=== PATIENT | male | born 1950 | race Caucasian/White ===

== ENCOUNTER 2017-07-17 15:01 | Inpatient (IN) | payer MEDICARE, BC ==
--- NOTE | 2017-07-17 15:46 | RAD ---
AP CHEST: Indication: Acute distress with chest pain and tachycardia. FINDINGS: Lungs are clear. Cardiomediastinal silhouette is within normal limits. No acute osseous abnormality i s evident. IMPRESSION: No acute cardiopulmonary abnormality. POS: [facility]
[2017-07-17 15:52] LABS: #Eosinphils 0.2 thou/uL (0.0-0.7); #Lymphocytes 2.3 thou/uL (1.20-3.40); #Monocytes 0.7 thou/uL (0.11-0.59); #Neutrophils 6.2 thou/uL (1.40-6.50); %Basophils 0.2 % (0.0-1.0); %Eosinophils 1.7 % (0.0-10.0); %Lymphocytes 24.8 % (21.0-51.0); %Monocytes 7.9 % (0.0-10.0); %Neutrophils 65.5 % (42.0-75.0); Hemoglobin 15.8 g/dL (14.0-18.0); Mean Corpuscular HGB CONC 33.9 g/dL (32.0-36.0); Mean Corpuscular Hemoglobin 30.7 pg (27.0-31.0); Mean Corpuscular Volume 90.5 fl (80.0-94.0); Mean Platelet Volume 7.7 fL (7.4-10.4); Platelet Count 255 thou/uL (130-400); RBC Distribution Width 12.7 % (11.5-14.5); Red Blood Cell (RBC) Count 5.16 mill/uL (4.70-6.10); White Blood Cell (WBC) Count 9.4 thou/uL (4.8-10.8)
[2017-07-17 15:57] LABS: INR-International Normal Ratio 1.3; Prothrombin Time 16.1 SEC (12.0-14.7)
[2017-07-17] MEDS ORDERED: Labetalol HCl 100 MG/20 ML VIAL ONE (16:03)
[2017-07-17 16:13] LABS: Anion Gap 13 mmol/L (10-20); BUN (Urea Nitrogen) 27 mg/dL (8.4-25.7); Calc. Creatinine Clearance 0 mL/min (70-130); Calcium 9.3 mg/dL (7.8-10.44); Carbon Dioxide 25 mmol/L (23-31); Chloride 108 mmol/L (98-107); Estimated GFR-MDRD 39; Glucose 105 mg/dL (80-115); Magnesium 2.3 mg/dL (1.6-2.6); Potassium 4.5 mmol/L (3.5-5.1); Sodium 141 mmol/L (136-145)
[2017-07-17 16:15] LABS: CKMB 0.9 ng/mL (0-6.6); Troponin I 0.011 ng/mL (< 0.028)
[2017-07-17] MEDS ORDERED: Labetalol HCl 200 MG, Admixture Fee 1 EACH in Sodium Chloride 0.9% 250 ML 160 ML IVPB SCH (16:30)
[2017-07-17] MEDS ORDERED: Ondansetron ODT 4 MG TAB SL PRN (18:38)
[2017-07-17] MEDS ORDERED: Ondansetron HCl/PF 4 MG/2 ML Vial IVP PRN (18:38)
[2017-07-17] MEDS ORDERED: Sodium Chloride 0.9% 1,000 ML IV SCH (18:38)
[2017-07-17] MEDS ORDERED: Acetaminophen 325 MG TAB PO PRN ×2 (18:38→19:12)
[2017-07-17] MEDS ORDERED: Zolpidem Tartrate 5 MG TAB PO PRN (19:12)
[2017-07-17] MEDS ORDERED: Ondansetron ODT 4 MG TAB PO PRN (19:12)
[2017-07-17] MEDS ORDERED: HYDROcodone/Acetaminophen 5/325 mg Tablet PO PRN (19:12)
[2017-07-17] MEDS ORDERED: Labetalol HCl 100 MG/20 ML VIAL SLOW IVP PRN (19:12)
[2017-07-17] MEDS ORDERED: Famotidine 20 MG TAB PO SCH (21:00)
[2017-07-17 22:32] VITALS: BMI 26.0
--- NOTE | 2017-07-17 23:28 | HP ---
DATE OF ADMISSION: 07/17/2017 TIME OF SERVICE: 1700 PRIMARY CARE PHYSICIAN: Dr. Issa Delgadillo. CHIEF COMPLAINT: Palpitation. HISTORY OF PRESENT ILLNESS: Mr. Carey is a very pleasant 67-year-old man who lives in [place], current ly lives in [facility], who was down visiting his family and babysitting his grandkids well, hi s children go on vacation. The patient has a history over the last 2-3 months of paroxysmal atrial fibrillation/atrial flutter a nd is being followed by the rubber cutter and shape carver. He is currently on propafenone and metoprolol, initially h e was on 100 mg b.i.d., but became symptomatically bradycardic and was cut down to 50 mg b.i.d. There have been discussions about EP consultation in [facility] for ablat ion. He started having palpitations about 48-50 hours prior to presentation. His heart rate he noticed wi thin 130s-140s. Normally, it comes and goes, but has been fairly persistent. He did increase his me toprolol from 50 b.i.d. to 100 b.i.d. without much effect and after about 50 hours, he was having mecca e fatigue and he decided to come to the emergency department for evaluation. He did contact his card iologist at home first and they recommend he did come in. He did have a stress test on 07/08/2017 prior to travel to [place]. The stress test was normal, was an exercise echocardiogram. He has no other current complaints. He denies any chest pain. No nausea or vomiting. No diaphoresi s or cold sweats. No other complaints. PAST MEDICAL HISTORY: 1. Paroxysmal atrial fibrillation/atrial flutter. 2. Hypertension. PAST SURGICAL HISTORY: Includes, 1. Ureteral diversion in 12/2014. 2. Right inguinal hernia repair, 03/07/2017. 3. C5-C6 fusion in 10/2014. 4. Appendectomy in 1976. 5. Exercise echo as above. HOME MEDICATIONS: 1. Metoprolol 50 mg p.o. b.i.d. 2. Xarelto 20 mg p.o. at bedtime. 3. Propafenone 150 mg p.o. b.i.d. 4. Amlodipine/benazepril 5/40 daily. 5. [place] 3 daily. 6. B12 5000 mcg daily. ALLERGIES: 1. LATEX causes skin rash. 2. SULFA. He had hives some 50 years ago is now rechallenge. FAMILY HISTORY: Negative for clotting or bleeding disorder, no immune dysfunction, no blood tumors. No premature coronary artery disease. SOCIAL HISTORY: Negative for habits x3. He is and monogamous. His , Diane is his medic al decision maker and the surrogate. Her number is [phone]. We did discuss the code status. Elaina vásquez does wish to be full code. REVIEW OF SYSTEMS: A 10-point review of systems was performed and was negative for all systems excep t as stated per HPI. PHYSICAL EXAMINATION: VITAL SIGNS: Temperature 97.9, pulse 124, blood pressure 125/88, respiratory rate 17, satting 95% on room air. GENERAL: He is awake. He is alert. He is oriented x3. He is a tall, thin white male, appears to b e in zero distress. HEENT: Normocephalic, atraumatic. His pupils are equal, round and reactive to light bilaterally, mu cous membranes are moist. He had no visible lesion, no thrush. NECK: Supple, with no lymphadenopathy, no JVD, no thyromegaly. He has normal carotid upstroke. I d o not appreciate bruits. LUNGS: Clear. He has good air movement. Symmetrical chest excursion. No wheezes, no rales, no rho nchi. No prolonged expiratory phase. CARDIOVASCULAR: He has a regular, but tachycardic. I do not appreciate murmurs. He has no audible rubs. ABDOMEN: Soft, it is nontender, nondistended. He has good bowel sounds in all four quadrants. Ther e is no rebound, rigidity or guarding. There is no hepatosplenomegaly. EXTREMITIES: No cyanosis, no clubbing, no edema. He has got 2+ dorsalis pedis in posterior tibial a nd radial arteries bilaterally. SKIN: Warm, moist and well perfused. He has no rashes, no lesions. NEUROLOGIC: His cranial nerves II through XII grossly intact. He has 5/5 strength, normal speech, a nd no focal neurologic deficits. MUSCULOSKELETAL: Normal to inspection. Large joints are uninflamed. There is no palpable effusions . LABORATORY DATA AND X-RAY FINDINGS: Sodium 141, potassium 4.5, chloride 108, bicarbonate 25, BUN 27, creatinine 1.76, glucose 165, calcium 9.3. Liver function is normal. CBC showed white count 9.4, hemoglobin 15.8, hematocrit of 46.7, platelet count is 255,000. White co unt with normal differential. CK-MB normal at 0.9. Troponin I is normal at 0.011. Chest x-ray showed no acute cardiopulmonary disease. EKG showed atrial flutter with 2:1 block at a r ate of 121. ASSESSMENT AND PLAN: 1. Paroxysmal atrial flutter/history of paroxysmal atrial fibrillation. The patient is already anti coagulated with Xarelto. He was given labetalol in the emergency department without much effect. Th ey are going to start a labetalol drip and I asked them to hold off. We will give him 20 mg of IV Ca rdizem and start him on 60 mg of Cardizem p.o. q.[address] him in the intermediate care unit in case he does require intravenous drip for rate control. We will continue his propafenone and metoprolol. We will hold his amlodipine and benazepril. 2. Hypertension, essential. The patient is on metoprolol, amlodipine and benazepril. He does have a creatinine of 1.76, but he is not aware of any chronic kidney issues. We will hold benazepril at p resent. We will use the Cardizem for blood pressure and rate control and continue his metoprolol and I have added IV labetalol as needed for elevated pressure. 3. Possible chronic kidney disease stage 2. Creatinine here is 1.76 with a BUN of 27. He is on steve azepril 40 mg a day. Certainly could have an BATOOL inhibitor induced creatinine elevation. We will ho ld off on his benazepril at present and he does not have any history of heart failure and we will fol low his creatinine very closely. The patient is already on Xarelto for stroke prophylaxis. We will continue as 20 mg p.o. at bedtime and I have added Pepcid b.i.d. p.o. for GI prophylaxis. I have consulted Dr. Lugo/Cardiology to see the patient regarding rate and rhythm control. He is very interested to know that we did have an Electrophysiology present, Dr. Herman, but I am not sure i f Dr. Herman is in town. We will ask Dr. Lugo to see the patient and make referral to EP if he fee ls appropriate.
--- NOTE | 2017-07-17 23:38 | PDOC.EVN ---
Event Note - Event Note Event Note: paged re: persistent tachycardia HR 130s with new hypotension rev h&p intiate cardizem gtt initial rate of 10mg/hr with anticipated titration and continued close monitoring, particularly of SBP d/w bedside nsg
[2017-07-17] MEDS ORDERED: Diltiazem 125 MG in Sodium Chloride 0.9% 100 ML IVPB SCH (23:45)
[2017-07-18 04:31] LABS: Anion Gap 10 mmol/L (10-20); BUN (Urea Nitrogen) 23 mg/dL (8.4-25.7); Calc. Creatinine Clearance 64 mL/min (70-130); Carbon Dioxide 26 mmol/L (23-31); Chloride 108 mmol/L (98-107); Estimated GFR-MDRD 47; Glucose 87 mg/dL (80-115); Magnesium 2.1 mg/dL (1.6-2.6); Potassium 4.1 mmol/L (3.5-5.1); Sodium 140 mmol/L (136-145)
[2017-07-18] MEDS ORDERED: FLU VACC TS2017-18 (>65YR) 0.5 ML SYRINGE IM ONE (07:00)
[2017-07-18] MEDS ORDERED: Prevnar 13-Val Conj/PF 0.5 ML SYRINGE IM ONE (07:00)
[2017-07-18 09:13] LABS: #Basophils 0.1 thou/uL (0.0-0.2); #Eosinphils 0.1 thou/uL (0.0-0.7); #Lymphocytes 1.8 thou/uL (1.20-3.40); #Monocytes 0.7 thou/uL (0.11-0.59); #Neutrophils 5.6 thou/uL (1.40-6.50); %Basophils 0.7 % (0.0-1.0); %Eosinophils 1.7 % (0.0-10.0); %Lymphocytes 21.8 % (21.0-51.0); %Monocytes 8.1 % (0.0-10.0); %Neutrophils 67.8 % (42.0-75.0); Hemoglobin 15.6 g/dL (14.0-18.0); Mean Corpuscular Hemoglobin 30.9 pg (27.0-31.0); Mean Corpuscular Volume 90.9 fl (80.0-94.0); Mean Platelet Volume 7.3 fL (7.4-10.4); Platelet Count 216 thou/uL (130-400); RBC Distribution Width 12.8 % (11.5-14.5); Red Blood Cell (RBC) Count 5.03 mill/uL (4.70-6.10); White Blood Cell (WBC) Count 8.3 thou/uL (4.8-10.8)
[2017-07-18 09:33] LABS: Anion Gap 10 mmol/L (10-20); BUN (Urea Nitrogen) 22 mg/dL (8.4-25.7); Calc. Creatinine Clearance 56 mL/min (70-130); Calcium 9.1 mg/dL (7.8-10.44); Carbon Dioxide 29 mmol/L (23-31); Chloride 107 mmol/L (98-107); Estimated GFR-MDRD 40; Glucose 93 mg/dL (80-115); Magnesium 2.2 mg/dL (1.6-2.6); Potassium 4.1 mmol/L (3.5-5.1); Sodium 142 mmol/L (136-145)
[2017-07-18] MEDS ORDERED: Diprivan 20 ML ONE (10:22)
[2017-07-18] MEDS ORDERED: Lidocaine 1% PF 5 ML VIAL ONE ×2 (10:22→14:25)
--- NOTE | 2017-07-18 11:34 | CON ---
DATE OF CONSULTATION: 07/18/2017 HISTORY OF PRESENT ILLNESS: Patient is a very pleasant 67-year-old gentleman who presents for evaluation of palpitations. Patient has a previous history of atrial flutter. The patient has been seen by an Electrophysiology in [place]. He has been treated with Toprol and Rythmol. The patient presented once again with increased palpitations. The patient denied having any chest discomfort. The patient states he previously underwent a stress test which revealed no evidence of ischemia. PAST MEDICAL HISTORY: 1. Hypertension. 2. Atrial flutter/fibrillation. PAST SURGICAL HISTORY: 1. Hernia surgery. 2. Ureteral surgery. SOCIAL HISTORY: Nonsmoker. MEDICATIONS ON ADMISSION: Lotrel 1 tablet daily, metoprolol 50 b.i.d., Xarelto 20 daily, propafenone 150 p.o. b.i.d. REVIEW OF SYSTEMS: A 10-point system unremarkable. No history of red blood per rectum. ALLERGIES: SULFA DRUGS. FAMILY HISTORY: No strong family history of heart disease. PHYSICAL EXAMINATION: GENERAL: Well-developed gentleman in no acute distress. Blood pressure 101/78. NECK: No jugular venous distention. LUNGS: Clear to auscultation. HEART: Regular rate and rhythm, normal S1, S2, no murmurs. ABDOMEN: Nondistended. EXTREMITIES: No edema. SKIN: Warm and dry. NEUROLOGIC: Nonfocal. VASCULAR: Radial pulses are 2+. LABORATORY DATA: Sodium 140, potassium 4.1, chloride 108, bicarbonate 26, BUN 23, creatinine is 1.5. White blood cell count 9.4, hemoglobin 15.8, hematocrit 46.7, platelets 255. INR 1.3. EKG revealed atrial flutter with a nonspecific ST abnormality. IMPRESSION: 1. Recurrent atrial flutter. 2. History of atrial fibrillation/flutter. 3. Hypertension. This gentleman presents with recurrent atrial fibrillation/flutter. We will increase the dose of propafenone. We will proceed with electrical cardioversion , the risks involved have been explained to the patient and he wishes to proceed. PLAN: 1. Increase Rythmol 150 mg po t.i.d. 2. Proceed with electrical cardioversion. [facility]
[2017-07-18] MEDS: Propafenone HCl 150 MG TAB PO SCH ×2 (11:49→18:11)
--- NOTE | 2017-07-18 14:11 | OP ---
ELECTRICAL CARDIOVERSION NOTE INDICATION FOR THE PROCEDURE: This is a 67-year-old gentleman with typical atrial flutter. DESCRIPTION OF PROCEDURE: The patient was taken to the PACU. The patient was sedated by anesthesiol dwain. The patient was shocked with 50 joules of synchronized electricity. The patient converted to n ormal sinus rhythm. IMPRESSION: Successful electrical cardioversion.
[2017-07-18] MEDS ORDERED: PHENYLEPHRINE-NS 100 MCG/ML 10 ML SYRINGE ONE (14:25)
[2017-07-18] MEDS ORDERED: Propofol 200 MG/20 ML VIAL ONE (14:25)
[2017-07-18 15:05] VITALS: BP 101/64; TEMP 98.7
--- NOTE | 2017-07-18 15:35 | PDOC.PN ---
- Subjective Encounter Start Date: 07/18/17 Encounter Start Time: 10:20 pt events removed, rate controlled, still in aflutter. Seen by [facility], to go to laborer heading for DC cardioversion today. Propafenone increased to 150mg po TID. no F/C,no n/V/D/C, no CP or sOb. 10 point ROs performed and neg for all systems except as per HPI - Objective Resuscitation Status: Resuscitation Status FULL:Full Resuscitation MAR Reviewed: Yes Vital Signs & Weight: Vital Signs (12 hours) Temp Pulse Resp BP Pulse Ox 07/18/17 15:05 98.7 F 69 18 101/64 98 07/18/17 11:27 98.8 F 74 20 120/79 95 07/18/17 08:00 98.0 F 142 H 18 101/78 100 07/18/17 04:09 97.3 F L 71 20 110/70 98 Weight Weight 203 lb I&O: 07/17/17 07/18/17 07/19/17 06:59 06:59 06:59 Intake Total 422.5 Balance 422.5 Result Diagrams: 07/18/17 09:06 07/18/17 09:06 Radiology Reviewed by me: Yes EKG Reviewed by me: Yes Phys Exam - Physical Examination Constitutional: NAD HEENT: PERRLA, moist MMs, sclera anicteric, oral pharynx no lesions Neck: no nodes, no JVD, supple, full ROM Respiratory: no wheezing, no rales, no rhonchi, clear to auscultation bilateral Cardiovascular: RRR, no significant murmur, no rub Gastrointestinal: soft, non-tender, no distention, positive bowel sounds Musculoskeletal: no edema, pulses present Neurological: non-focal, normal sensation, moves all 4 limbs Lymphatic: no nodes Psychiatric: normal affect, A&O x 3 Skin: no rash, normal turgor, cap refill <2 seconds Dx/Plan (1) Atrial flutter Code(s): I48.92 - UNSPECIFIED ATRIAL FLUTTER Status: Acute Qualifiers: Atrial flutter type: unspecified Qualified Code(s): I48.92 - Unspecified atrial flutter Comment: paroxysmal, 2:1 block on arrival, 4:1 now. to cardioversion today. Home when okay with cardiology, will likely need an ablation later. icreased propafenone, on metorpolol. (2) Paroxysmal A-fib Code(s): I48.0 - PAROXYSMAL ATRIAL FIBRILLATION Status: Chronic (3) HTN (hypertension) Code(s): I10 - ESSENTIAL (PRIMARY) HYPERTENSION Status: Chronic Qualifiers: Hypertension type: essential hypertension Qualified Code(s): I10 - Essential (primary) hypertension (4) HLD (hyperlipidemia) Code(s): E78.5 - HYPERLIPIDEMIA, UNSPECIFIED Status: Acute Qualifiers: Hyperlipidemia type: unspecified Qualified Code(s): E78.5 - Hyperlipidemia , unspecified (5) CKD (chronic kidney disease) stage 2, GFR 60-89 ml/min Code(s): N18.2 - CHRONIC KIDNEY DISEASE, STAGE 2 (MILD) Status: Chronic - Plan cont current plan of care, plan discussed w/ family, out of bed/ambulate * .
[2017-07-18] MEDS ORDERED: Rivaroxaban 10 MG TAB PO SCH (18:00)
--- NOTE | 2017-07-18 20:06 | DIS ---
DATE OF ADMISSION: 07/17/2017 DATE OF DISCHARGE: 07/18/2017 PRIMARY CARE PHYSICIAN: Dr. Delgadillo in [facility]. BIAS BINDING CUTTER: Here is Dr. Cruz Lugo DISCHARGE DIAGNOSES: 1. Paroxysmal atrial flutter. 2. Paroxysmal atrial fibrillation. 3. Hypertension. 4. Chronic kidney disease stage 2. 5. Hyperlipidemia. CONSULTATION: Dr. Cruz Lugo, Cardiology. PROCEDURE: DC cardioversion, 07/18/2017. HOSPITAL COURSE: Mr. Mendoza is a 67-year-old white male with a history of last 2 months of proximal fibrillation/atrial flutter. He has been on metoprolol in varying doses adjusted due to his heart ra te. He had a stress test just prior to leaving [facility] came down here for a month until babysit while his children were traveling. He has been watching his grandchildren. He had 48 hours of palpitations and presented to the emergency department at the direction of his car diologist back home. In the ER, he was found to be in atrial flutter with a rate of 132:1 block. We are consulted for adm ission. HOSPITAL COURSE: The patient was seen and examined by me in the emergency department and he was star subhash on Cardizem, admitted to the [facility] in case he needed a drip. Overnight, he did have increased hea rt rate and was switched over to Cardizem intravenously. He became rate controlled, but still in atr ial flutter with a 4:1 block. fashion consultant selling saw him in the morning and recommended a DC card ioversion. He was taken to the laboratory manager and DC cardioversion was performed and successful. He was subsequently increased of the propafenone to 150 mg p.o. t.i.d. Post-procedure, the patient remained in sinus rhythm and was cleared for discharge by Cardiology with outpatient followup in 2 days with EKG. PHYSICAL EXAMINATION: The patient was seen and examined on the day of discharge. Discharge plan and disposition was discussed with the patient and his face to face at bedside. DISCHARGE MEDICATIONS: 1. Amlodipine/benazepril 5/40 one tablet p.o. daily. 2. Cyanocobalamin 5000 mcg daily. 3. [place] 3 one tablet daily. 4. Metoprolol tartrate 50 mg p.o. b.i.d. 5. Propafenone 50 mg p.o. t.i.d., prescription for 90 tablets with 3 refills sent to [facility]. 6. Xarelto 20 mg p.o. q.p.m. DISCHARGE CONDITION: Stable. DISPOSITION: Will be discharged to home via private vehicle with his . DISCHARGE ACTIVITY: Per cardiopulmonary limits. DISCHARGE DIET: Heart healthy recommended. FOLLOWUP 1. Primary care physician when he returns back to [facility]. 2. Dr. Cruz Lugo in 2 days with an EKG.
--- NOTE | 2017-07-18 23:06 | ECHO ---
This is a 67-year-old gentleman with atrial flutter. The patient taken to the PACU. The patient sedated by anesthesiology. Transesophageal probe was placed distally in the esophagus and stomach. Echocardiographic images were obtained. The transesophageal probe was removed. FINDINGS: 1. Normal left ventricular systolic function. 2. Normal mitral and aortic valves. 3. Mild mitral regurgitation. 4. Mild tricuspid regurgitation. 5. No thrombus noted in left atrial appendage. 6. Atherosclerotic debris in the descending aorta. IMPRESSION: No formed thrombus in the left atrial appendage. MTDD
--- NOTE | 2017-07-19 06:22 | CON ---
DATE OF CONSULTATION: 07/18/2017 ELECTROPHYSIOLOGY CONSULTATION REPORT REFERRING PHYSICIAN: Dr. Lugo. I am seeing Mr. Mendoza at our [facility] as an Electrophysiology assessment consultant. His problems are: 1. Recurrent atrial arrhythmias. A. Prior history of atrial fibrillation requiring propofol therapy. B. Presentation with typical atrial flutter to our facility requiring cardioversion. C. Chronic anticoagulation with rivaroxaban. 2. No prior history of coronary heart disease noted. 3. Hypertension. 4. History of negative stress test on 07/08/2017 with a stress echocardiogram. ALLERGIES: LATEX AND SULFA. MEDICATIONS: At home include metoprolol 50 mg twice a day, Xarelto 10 mg at bedtime, propafenone 150 mg twice a day, amlodipine/benazepril 5/40 mg daily, omega 3 fatty acid supplements, vitamin B12 supplements. SUBJECTIVE: Mr. Mendoza is here due to recurrent palpitations. This gentleman usually lives in [place], but also goes on vacation, this vacation was in [facility]. He was here visiting his family, visiting his grandkids. He has been noticing frequent palpitations in last 2-3 months. He has been evaluated by his prosthetic dentist in [place] and eventually propafenone and metoprolol was started. He had planned to have an EP consultation also in [facility] for consideration for ablation. His palpitation has been though persisting despite of the low-dose propafenone. His heart rates were up to 130-140 at that time. Although he has increased his metoprolol dose from 50 b.i.d. to 100 b.i.d., but it not really gave him much relief. Eventually, he got admitted here in our hospital, Dr. Lugo evaluated him. Decision was made to perform the cardioversion, hence he has been well anticoagulated. Eventually, the propafenone was increased as well. Currently, he is feeling better in normal rhythm. He denies chest pains, no fever, chills, or cough. No stroke-like symptoms or bleeding issues are noted. No PND, orthopnea, or lower extremity edema. REVIEW OF SYSTEMS: Rest of 12-point system otherwise unremarkable. PAST MEDICAL HISTORY: As above. He has no prior heart disease or heart attacks. His first notion of atrial fibrillation was just this May. SOCIAL HISTORY: Again, he is retired. Denies smoking, ETOH, or drug use. FAMILY HISTORY: Negative for premature coronary artery disease or clotting disorder. OBJECTIVE DATA: VITAL SIGNS: The blood pressure is 101/64, 169, respirations 18, temperature 98.7 degrees Fahrenheit. GENERAL: He is alert and oriented man in no apparent distress. NECK: Supple. Jugular veins not distended. CHEST: Coarse without crackles. CARDIAC: Heart sounds are regular to rate and rhythm. No murmur or gallop is appreciated. PMI is nonpalpable. ABDOMEN: Benign. Bowel sounds are positive. EXTREMITIES: Lower extremities without edema, clubbing, or cyanosis. Pulses are adequate. NEUROLOGIC: Patient is nonfocal. MUSCULOSKELETAL: No joint swelling or deformities. SKIN: Without rash. DATABASE: The EKG is reviewed initially atrial flutter, which appears typical isthmus dependent morphology. Subsequent EKG after cardioversion with sinus rhythm. LABORATORY DATA: White cell count is 8.3, hemoglobin 15.6, platelet count is 216. INR is 1.3. Sodium 142, potassium 4.1, BUN is 22, creatinine is 1.72. ASSESSMENT AND PLAN: Mr. Mendoza is a pleasant 67-year-old man with prior history of hypertension and negative recent stress test, who has had atrial fibrillation and flutter both as per his description on his original presentation in 05/2017. Although, he was started on metoprolol, which required up-titration and low-dose propafenone, he had been sustaining an atrial flutter for over 2 days with rapid rates requiring this admission. He was cardioverted and his propafenone as increased currently maintaining sinus rhythm. Good long discussion about the nature of his arrhythmias, we discussed the differences between atrial flutter, which is likely due to right-sided cavotricuspid isthmus dependent circuit and also the atrial fibrillation, which are more likely initiated by left atrial PAC. We discussed the potential treatment options, which could include continued increasing rhythm medications, consider pulmonary venous isolation procedure along with cavotricuspid isthmus ablation or just cavotricuspid isthmus ablation alone. I did discuss with him the pros and cons of each procedure. Complicated issues that he might need to return to [place] in August. At this point, he is ready to be discharged and he is stable post cardioversion. I gave him the option ofchoosing for any of these routes above. Tentatively, we will make arrangements for potential ablation procedure next week, but he will make the final decision. We will contact him in this regard. In meantime, continue propafenone, Xarelto, and the metoprolol. I agree with increasing propafenone to 150 mg 3 times a day dose. Thank you again for allowing me to participate in the care of this patient. GARRICK
--- NOTE | 2017-07-21 15:57 | EKG ---
Test Reason : Blood Pressure : / mmHG Vent. Rate : 121 BPM Atrial Rate : 242 BPM P-R Int : 000 ms QRS Dur : 090 ms QT Int : 304 ms P-R-T Axes : -85 065 036 degrees QTc Int : 431 ms Atrial flutter with 2:1 A-V conduction Junctional ST depression, probably normal Abnormal ECG Confirmed by KARSTEN HUBBARD, UMBERTO ([id number]), technical editor RYLEE AGRAWAL ([id number]) on 07/21/2017 3:56:23 PM Referred By: Confirmed By:UMBERTO SHELLEY MD
== END 2017-07-18 18:56 | disposition home or self-care (01) | DRG 310 ==
LOC: ERS 15:01 → IMCU/EMU 16:56 → ERS 18:22
PROVIDERS: ADMIT Internal Medicine Infectious Disease; ATTEND Internal Medicine Infectious Disease
PROC: 5A2204Z Restoration of Cardiac Rhythm, Single (ICD-10-PCS; principal; 2017-07-18)
DX: I48.0 Paroxysmal atrial fibrillation (principal); E78.5 Hyperlipidemia, unspecified; I12.9 Hypertensive chronic kidney disease with stage 1 through stage 4 chronic kidney disease, or unspecified chronic kidney disease; Z98.1 Arthrodesis status; Z88.2 Allergy status to sulfonamides; Z91.040 Latex allergy status; N18.2 Chronic kidney disease, stage 2 (mild); I48.92 Unspecified atrial flutter; Z79.01 Long term (current) use of anticoagulants
CPT/HCPCS: 36415; 71045; 80048; 82553; 83735; 84484; 85025; 85610; 92960; 93005; 93312; 96361; 96374; J2001; J2704; J7050

== ENCOUNTER 2017-08-08 08:03 | Outpatient (CLI) | payer MEDICARE, BC ==
--- NOTE | 2017-08-08 11:37 | CT ---
CT ANGIOGRAM OF HEART WITH AND WITHOUT CONTRAST: Date: 08-08-17 History: 67-year-old male with atrial fibrillation. Pulmonary venous mapping study for planning for ablation t herapy. Atrial fibrillation - I48.91. Technique: Pre and post contrast scans performed through the heart. Limited field of view. Coronal and oblique s agittal 3D MIP reconstructions. FINDINGS: Bovine common origin of the left common carotid artery with the brachiocephalic artery. There is a si ngle tiny coronary arthrosclerotic calcification at the left anterior descending coronary artery (vis ible only on post contrast images 172 and 171 of 353, series 4. Not visible on the noncontrast scan b ecause of thicker slices on that scan). Approximately 3.5 cm round hepatic cyst near the junction b etween the left and right lobes of liver. No thoracic aortic aneurysm or dissection. No evidence of t hrombus in the left atrial appendage. No cardiomegaly or pericardial effusion. No pleural effusion. N o infiltrate or mass visualized in the central portions of the lungs. No mediastinal or hilar lymphad enopathy. No atrial septal defect or ventricular septal defect. In addition to the typical four main pulmonary veins, there is an additional left middle pulmonary vein. IMPRESSION: Pulmonary vein anatomy consists of the typical four main pulmonary veins, plus a left sided middle ve in. POS: [facility]
[2017-08-08 15:30] LABS: Hemoglobin 15.1 g/dL (14.0-18.0); Mean Corpuscular HGB CONC 32.4 g/dL (32.0-36.0); Mean Corpuscular Hemoglobin 30.2 pg (27.0-31.0); Mean Corpuscular Volume 93.1 fl (80.0-94.0); Mean Platelet Volume 7.6 fL (7.4-10.4); Platelet Count 241 thou/uL (130-400); RBC Distribution Width 12.7 % (11.5-14.5); White Blood Cell (WBC) Count 7.2 thou/uL (4.8-10.8)
[2017-08-08 15:36] LABS: INR-International Normal Ratio 1.2; PTT 31.1 SEC (22.9-36.1); Prothrombin Time 14.9 SEC (12.0-14.7)
[2017-08-08 15:46] LABS: Anion Gap 15 mmol/L (10-20); BUN (Urea Nitrogen) 22 mg/dL (8.4-25.7); Calc. Creatinine Clearance 0 mL/min (70-130); Calcium 9.8 mg/dL (7.8-10.44); Carbon Dioxide 26 mmol/L (23-31); Chloride 106 mmol/L (98-107); Estimated GFR-MDRD 45; Glucose 101 mg/dL (80-115); Sodium 142 mmol/L (136-145)
== END 2017-08-08 08:04 | disposition home or self-care (01) ==
LOC: CT 08:03
PROVIDERS: ATTEND Internal Medicine Cardiovascular Disease
DX: Z01.818 Encounter for other preprocedural examination (principal); I48.91 Unspecified atrial fibrillation
CPT/HCPCS: 71275; 75574; 80048; 82565; 85027; 85610; 85730

== ENCOUNTER 2017-08-09 12:58 | Observation (INO) | payer MEDICARE, BC ==
[2017-08-09] MEDS ORDERED: PHENYLEPHRINE-NS 100 MCG/ML 10 ML SYRINGE ONE (13:49)
[2017-08-09] MEDS ORDERED: Succinylcholine Chloride 20 MG/ML 10 ml SYRINGE FS ONE (13:49)
[2017-08-09] MEDS ORDERED: PROPOFOL 200 MG/20 ML VIAL ONE (13:49)
[2017-08-09] MEDS ORDERED: Ondansetron HCl/PF 4 MG/2 ML Vial ONE (13:49)
[2017-08-09] MEDS ORDERED: Heparin 30,000 units/30 ml VIAL ONE (13:49)
[2017-08-09] MEDS ORDERED: Heparin 10,000 UNITS/1 ML VIAL ONE (16:39)
[2017-08-09] MEDS ORDERED: Isoproterenol 0.2 MG/1 ML AMP ONE (17:24)
[2017-08-09] MEDS ORDERED: Protamine Sulfate 50 MG/5 ML VIAL ONE (18:18)
[2017-08-09] MEDS ORDERED: Furosemide 40 MG/4 ML VIAL ONE (18:19)
[2017-08-09] MEDS ORDERED: Promethazine HCl 25 MG/ML VIAL IM PRN (18:34)
[2017-08-09] MEDS ORDERED: Morphine Sulfate 2 MG/ML SYRINGE SLOW IVP PRN (18:34)
[2017-08-09] MEDS ORDERED: Promethazine HCl 25 MG/ML VIAL SLOW IVP PRN (18:34)
[2017-08-09] MEDS ORDERED: Ondansetron HCl/PF 4 MG/2 ML Vial IVP PRN ×2 (18:34→21:51)
[2017-08-09] MEDS ORDERED: Nitroglycerin 0.4 MG TAB (25 Tab Bottle) SL PRN (21:51)
[2017-08-09] MEDS ORDERED: Silver Sulfadiazine 1% Cream 50 GM JAR TOP PRN (21:51)
[2017-08-09] MEDS ORDERED: Acetaminophen 325 MG TAB PO PRN (21:51)
[2017-08-09] MEDS ORDERED: Bisacodyl 5 MG TAB PO PRN (21:51)
[2017-08-09] MEDS ORDERED: Mag-Al 1200 mg/1200 mg/30 ML UDCUP PO PRN (21:51)
[2017-08-09] MEDS ORDERED: Bisacodyl 10 MG SUPP PR PRN (21:51)
[2017-08-09] MEDS ORDERED: traMADol HCl 50 MG TAB PO PRN (21:51)
[2017-08-09] MEDS ORDERED: diphenhydrAMINE 25 MG CAP PO PRN (21:51)
[2017-08-09] MEDS ORDERED: Temazepam 15 MG CAP PO PRN (21:51)
[2017-08-09 22:33] VITALS: BMI 25.0
[2017-08-09] MEDS: Propafenone HCl 150 MG TAB PO SCH (22:38)
--- NOTE | 2017-08-10 00:53 | OP ---
DATE OF PROCEDURE: 08/09/2017 ELECTROPHYSIOLOGY PROCEDURE NOTE PROCEDURE: Comprehensive EP testing with 3D mapping and ablation of atrial fibrillation. CORE FINISHER: William Mackenzie MD ASA CLASSIFICATION: 3. ANESTHESIA: Total IV anesthesia per Anesthesiology. ADDITIONAL CARDIAC MEDICATIONS: Isoproterenol 10 mcg per minute infusion. Total heparin given, 16,0 00 units. Total protamine given, 40 mg. ACUTE COMPLICATIONS: None apparent. TOTAL RADIOFREQUENCY TIME: 15 minutes 23 seconds. METHODS: After informed consent was obtained, the patient was taken to the EP lab in a fasting state . Both groins were prepped and draped using ultrasound guidance. The right and left femoral veins w ere accessed and wires were placed in the central venous system. The wires were used to place an 11 and 8-Colombian sheath in left groin, two 8-Colombian sheath in the right groin. All 8-Colombian sheaths were then replaced by long sheaths for catheter stability. A 10-Colombian echo probe was placed in left bella in, advanced into the right atrium and the right ventricle for imaging. A circular and ablation cath eter were placed in right groin and advanced up to the right atrium. A 3D map was obtained at the ri t atrium and the coronary sinus. A 20-pole catheter was placed in the left groin and advanced up t o the coronary sinus. The patient was then anticoagulated. Transseptal catheterization was performe d on 2 occasions and 3D map was obtained of the left atrium. A temperature probe was placed in the e sophagus, collocated with a sensor to monitor temperatures during RF ablation. Ablation was delivere d completely isolating all pulmonary veins and the posterior wall of left atrium. The patient then s ustained a right-sided flutter. After an observation period, catheter was withdrawn to the right atr ium and ablation was delivered terminating the flutter. Confirmed bidirectional block was seen. At the conclusion of procedure, catheters were drawn. Sheaths were pulled and hemostasis was achieved w ith collagen closure. His left chest was then prepped and an injectable monitor was placed for monit oring. RESULTS: 1. Baseline intervals: HV interval 59 milliseconds. The patient demonstrated typical atrial flutte r with a cycle length of 208 milliseconds pacing within the flutter circuit, confirmed concealed entr ainment. 2. Atrial function: The patient did not demonstrate atrial fibrillation; however, with the clinical evidence of atrial fibrillation previously, PVAI was performed including isolation of the posterior wall of left atrium. The patient was in CTI flutter, which was mapped and ablated in the right side floor of the right atrium with confirmed bidirectional block. 3. Ablation detail: A total of 15 minutes 23 seconds were delivered to isolate all 3 pulmonary vein s (the patient had a left common pulmonary vein), as well as interrupt the cavotricuspid isthmus. IMPRESSION: Successful ablation of left atrium for treatment of atrial fibrillation along with a CTI flutter line. RECOMMENDATION: Oral anticoagulation.
[2017-08-10] MEDS: Propafenone HCl 150 MG TAB PO SCH (05:25)
[2017-08-10] MEDS ORDERED: Metoprolol Tartrate 50 MG TAB PO SCH (09:00)
[2017-08-10] MEDS ORDERED: Cyanocobalamin (Vitamin B-12) 1,000 MCG TAB PO SCH (09:00)
[2017-08-10] MEDS ORDERED: Fish Oil 1,000 MG CAP PO SCH (09:00)
[2017-08-10] MEDS ORDERED: Amlodipine 5 MG TAB PO SCH (09:00)
[2017-08-10 12:24] VITALS: BP 109/62; TEMP 99.6
--- NOTE | 2017-08-10 12:59 | DIS ---
DATE OF ADMISSION: 08/09/2017 DATE OF DISCHARGE: 08/10/2017 ADMITTING DIAGNOSES: Typical atrial flutter and atrial fibrillation. PROCEDURES PERFORMED: Comprehensive EP testing with 3D mapping and ablation of atrial fibrillation a nd CTI flutter ablation. Implantation of a LINQ loop recorder TOTAL RF TIME: 50 minutes 23 seconds. IMPRESSION: Successful ablation of left atrium for treatment of atrial fibrillation as well as CTI f lutter line placed for typical atrial flutter. CONDITION: Stable. HISTORY OF PRESENT ILLNESS: Mr. Mendoza is a 67-year-old gentleman who initially presented to [facility] with atrial flutter a few weeks ago while on vacation from [place]. He was also found to fitzgerald ve atrial fibrillation. He opted for setting up an elective outpatient ablation prior to heading [employer] to his home in the [facility] region. On 08/09/2017 he underwent successful ablation for at rial fibrillation in the left atrium as well as CTI flutter line placed for his typical atrial flutte r. He has had a stable recovery. His Diggs was removed the day of the procedure and he has been voi ding normally. He has been ambulating in halls without difficulty and tolerating p.o. intake. His g roin sites are stable without hematoma, oozing or additional complication. He has been maintained in sinus rhythm overnight. He was previously on propafenone for arrhythmia suppression as well as meto prolol for rate control. He has been maintained on Xarelto for stroke prophylaxis. He is stable for discharge today. He will discontinue his Rythmol, but will continue his metoprolol succinate and his Xarelto. DISCHARGE MEDICATIONS: Lotrel 5-40 mg 1 tab daily, metoprolol XL 50 mg daily, Xarelto 20 mg daily. New prescriptions are Carafate 1 gram q.i.d. x2 weeks, Protonix 40 mg daily for 1 month, Lasix 20 mg 1 tab daily as needed for shortness of breath or fluid retention and potassium chloride 10 mEq daily as needed if taking Lasix. DISCHARGE INSTRUCTIONS: No lifting more than 15 pounds or soaking baths for 1 week. Otherwise, to r esume normal activities after 1 week without restriction. Heart healthy diet. He will follow up in 4-6 weeks.
[2017-08-10] MEDS ORDERED: Rivaroxaban 10 MG TAB PO SCH (17:00)
--- NOTE | 2017-08-22 22:53 | EKG ---
Test Reason : PREOP Blood Pressure : / mmHG Vent. Rate : 142 BPM Atrial Rate : 142 BPM P-R Int : 148 ms QRS Dur : 088 ms QT Int : 248 ms P-R-T Axes : 269 049 -20 degrees QTc Int : 381 ms atrial flutter,2:[address] abnormality, possible inferior subendocardial injury Abnormal ECG When compared with ECG of 17-JUL-2017 15:10, Ectopic atrial rhythm has replaced Atrial flutter ST more depressed in Inferior leads Confirmed by Mao ELLISON ([id number]) on 08/22/2017 10:53:18 PM Referred By: BRANDON Confirmed By:Mao ELLISON
--- NOTE | 2017-08-22 22:54 | EKG ---
Test Reason : STAT Blood Pressure : / mmHG Vent. Rate : 079 BPM Atrial Rate : 079 BPM P-R Int : 142 ms QRS Dur : 092 ms QT Int : 354 ms P-R-T Axes : 069 063 056 degrees QTc Int : 405 ms Normal sinus rhythm Normal ECG When compared with ECG of 09-AUG-2017 13:51, (Unconfirmed) Sinus rhythm has replaced Ectopic atrial rhythm Vent. rate has decreased BY [address] no longer depressed in Inferior leads ST no longer depressed in Anterior leads T wave inversion no longer evident in Inferior leads Confirmed by Mao ELLISON ([id number]) on 08/22/2017 10:54:23 PM Referred By: BRANDON Confirmed By:Mao ELLISON
== END 2017-08-10 12:22 | disposition home or self-care (01) ==
LOC: CCL 12:58 → 2SW 17:00 → CCL 22:24
PROVIDERS: ADMIT Internal Medicine Cardiovascular Disease; ATTEND Internal Medicine Cardiovascular Disease
PROC: 02583ZZ Destruction of Conduction Mechanism, Percutaneous Approach (ICD-10-PCS; principal; 2017-08-09)
PROC: 0JH632Z Insertion of Monitoring Device into Chest Subcutaneous Tissue and Fascia, Percutaneous Approach (ICD-10-PCS; 2017-08-09)
DX: I48.91 Unspecified atrial fibrillation (principal); Z88.2 Allergy status to sulfonamides; Z91.048 Other nonmedicinal substance allergy status
CPT/HCPCS: 33282; 85347 ×2; 93005 ×2; 93613; 93623; 93656; 93657; 93662; C1731; C1732 ×3; C1759; C1764; C1769; G0378; 93010; J1644; J1940; J2405; J2704; J2720

== ENCOUNTER 2019-10-03 13:48 | Emergency (ER) | payer MEDICARE, BC ==
[2019-10-03] MEDS ORDERED: Morphine 4 MG/ML VIAL ONE (14:41)
[2019-10-03] MEDS ORDERED: Ondansetron PF 4 MG/2 ML Vial ONE (14:41)
[2019-10-03 15:19] LABS: #Eosinphils 0.1 thou/uL (0.0-0.7); #Lymphocytes 1.5 thou/uL (1.20-3.40); #Monocytes 0.6 thou/uL (0.11-0.59); #Neutrophils 13.3 thou/uL (1.40-6.50); %Basophils 0.1 % (0.0-1.0); %Eosinophils 0.4 % (0.0-10.0); %Lymphocytes 9.5 % (21.0-51.0); %Monocytes 3.6 % (0.0-10.0); %Neutrophils 86.5 % (42.0-75.0); Hemoglobin 15.4 g/dL (14.0-18.0); Mean Corpuscular HGB CONC 34.1 g/dL (32.0-36.0); Mean Corpuscular Volume 93.9 fL (78.0-98.0); Platelet Count 243 thou/uL (130-400); RBC Distribution Width 12.7 % (11.5-14.5); Red Blood Cell (RBC) Count 4.82 mill/uL (4.70-6.10); White Blood Cell (WBC) Count 15.3 thou/uL (4.8-10.8)
[2019-10-03 15:43] LABS: ALT (SGPT) 26 U/L (8-55); AST (SGOT) 21 U/L (5-34); Albumin 4.4 g/dL (3.4-4.8); Alkaline Phosphatase 120 U/L (40-110); Anion Gap 12 mmol/L (10-20); BUN (Urea Nitrogen) 22 mg/dL (8.4-25.7); Bilirubin, Total 1.1 mg/dL (0.2-1.2); Calc. Creatinine Clearance 0 mL/min (70-130); Calcium 9.3 mg/dL (7.8-10.44); Carbon Dioxide 26 mmol/L (23-31); Chloride 104 mmol/L (98-107); Estimated GFR-MDRD 48; Glucose 110 mg/dL (80-115); Lipase 25 U/L (8-78); Potassium 4.2 mmol/L (3.5-5.1); Protein, Total 7.4 g/dL (5.8-8.1); Sodium 138 mmol/L (136-145)
--- NOTE | 2019-10-03 15:59 | CT ---
CT OF THE ABDOMEN AND PELVIS WITHOUT CONTRAST: 10/03/19 COMPARISON: None. HISTORY: History of kidney stones with right sided flank pain for three hours. TECHNIQUE: Multiple contiguous axial images were obtained in a CT of the abdomen and pelvis without contrast. Sa gittal and coronal reformats were performed. FINDINGS: There is moderate right hydronephrosis. In the distal aspect of the right ureter there is a 4 mm calc ification. There are hyperdensities in the pelvis immediately adjacent to the urinary bladder. These are bilateral and measure up to 3.4 cm in size. These are immediately adjacent to the urinary bladder and bladder diverticula are possibilities. The left kidney is small and atrophic. No left hydronephr osis is seen. There are hypodensities in the liver measuring up to 3.6 cm in size which represents cysts. The gallb ladder, adrenal glands, spleen, and pancreas are unremarkable, although evaluation is limited without IV contrast. There is nonspecific stranding change in the small bowel mesentery. No retroperitoneal adenopathy is seen. Atherosclerotic calcifications are seen in the aorta. The large and small bowel are unremarkable. The appendix is not definitely seen and may have been removed. Postsurgical changes are seen along the abdominal wall in the right lower quadrant of the abdomen lik kirit from prior hernia repair. Degenerative changes are seen in the spine. The visualized inferior tho rax is unremarkable. IMPRESSION: 1. Right distal ureteral calcification with moderate right hydronephrosis. 2. There are hyperdensities just above the urinary bladder. These may emanate from the urinary b ladder and could represent bladder diverticula. A CT of the abdomen and pelvis per urogram protocol i s recommended to evaluate for contrast within these lesions on the delayed phase images. The delayed phase images may need to be prolonged to allow these to fill with contrast. 3. Hepatic cysts. 4. 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 POS: HAYDEA
[2019-10-03 17:06] LABS: Bacteria/HPF None Seen HPF (None Seen); Bilirubin Negative (Negative); Blood, Urine 2+ (Negative); Clarity Clear (Clear); Glucose, Urine (Dipstick) Normal (Negative); Leukocyte Negative Leu/uL (Negative); Nitrite Negative (Negative); Protein, Urine (Dipstick) 20 mg/dL (Neg-Trace); RBC/HPF Greater than 50 HPF (0-3); Squamous Epithelial 0-3 HPF (0-3); Urobilinogen Normal mg/dL (Less than 2); WBC/HPF 0-3 HPF (0-3)
== END 2019-10-03 17:45 | disposition home or self-care (01) ==
LOC: ERS 13:48
DX: N13.2 Hydronephrosis with renal and ureteral calculous obstruction (principal); I48.91 Unspecified atrial fibrillation; I10 Essential (primary) hypertension; Z79.899 Other long term (current) drug therapy
CPT/HCPCS: 74176; 80053; 81003; 81015; 83690; 85025; 96374; 96375; J2270; J2405